=== PATIENT | male | born 1940 | race Caucasian/White ===

== ENCOUNTER 2020-03-06 16:05 | Emergency (ER) | payer MEDICARE, BC ==
[~2020-03-06 16:05] MED LIST: Iopamidol-370 76% 500 ML 1 ML ONE
[2020-03-06 17:28] LABS: Bilirubin Negative (Negative); Blood, Urine Negative (Negative); Clarity Clear (Clear); Glucose, Urine (Dipstick) 30 mg/dL (Negative); Ketone, Urine Negative (Negative); Leukocyte Negative Leu/uL (Negative); Nitrite Negative (Negative); Protein, Urine (Dipstick) Negative (Neg-Trace); Specific Gravity, Urine 1.011 (1.002-1.036); Urobilinogen Normal mg/dL (Less than 2)
[2020-03-06 18:16] LABS: Hemoglobin 16.5 g/dL (14.0-18.0); Mean Corpuscular HGB CONC 33.5 g/dL (32.0-36.0); Mean Corpuscular Hemoglobin 31.5 pg (27.0-31.0); Mean Corpuscular Volume 94.1 fL (78.0-98.0); Mean Platelet Volume 7.3 fL (7.4-10.4); Platelet Count 258 thou/uL (130-400); RBC Distribution Width 11.9 % (11.5-14.5); Red Blood Cell (RBC) Count 5.24 mill/uL (4.70-6.10)
[2020-03-06 18:31] LABS: ALT (SGPT) 17 U/L (8-55); AST (SGOT) 24 U/L (5-34); Albumin 4.4 g/dL (3.4-4.8); Alkaline Phosphatase 84 U/L (40-110); Anion Gap 14 mmol/L (10-20); BUN (Urea Nitrogen) 16 mg/dL (8.4-25.7); Bilirubin, Total 0.7 mg/dL (0.2-1.2); Calc. Creatinine Clearance 0 mL/min (70-130); Calcium 10.7 mg/dL (7.8-10.44); Carbon Dioxide 25 mmol/L (23-31); Chloride 105 mmol/L (98-107); Globulin 3.7 g/dL (2.4-3.5); Glucose 118 mg/dL (83-110); Potassium 3.9 mmol/L (3.5-5.1); Protein, Total 8.1 g/dL (5.8-8.1); Sodium 140 mmol/L (136-145)
[2020-03-06 18:37] LABS: Band 4 % (5-11); Lymphocytes 12 % (21-51); MDiff Complete? YES; Monocytes 19 % (0-10); Neutrophil 65 % (42-75); Platelet Morphology Comment Appears Adequate; RBC Morphology Normal
--- NOTE | 2020-03-06 19:30 | CT ---
CT Abdomen Pelvis W Con: 03/06/2020 7:09 PM CLINICAL INFORMATION: Urinary incontinence, bloating and abdominal pain COMPARISON: CT chest 09/11/2015 TECHNIQUE: Multiple contiguous axial images were obtained and a CT of the abdomen and pelvis with IV contrast. C oronal and sagittal reformats were performed. FINDINGS: Lower Chest: Bilateral posterior scarring is stable. There is a stable calcification along the anteri or pleura in the right thorax. Abdomen: Liver: within normal limits. Bile Ducts: Normal caliber. Gallbladder: No calcified gallstones. Normal caliber wall. Pancreas: within normal limits. Spleen: within normal limits. Adrenals: within normal limits. Kidneys: Mild bilateral hydronephrosis. Pelvis: Reproductive Organs: Prostate is enlarged and has calcifications within it. Ureters: Mild bilateral hydroureter. Bladder: Distended without focal abnormality. Peritoneum: No ascites or free air, no fluid collection. Bowel: Normal caliber. Surgical clips are seen near the gastroesophageal junction. Mesentery and Retroperitoneum: No enlarged mesenteric or retroperitoneal lymph nodes. Vessels: Atherosclerotic calcifications. Abdominal Wall: There is a moderate left hydrocele. Bones: Degenerative and postsurgical changes are seen in the spine. IMPRESSION: 1. Distention of the urinary bladder with vesicoureteral reflux causing bilateral mild hydronephrosis . 2. Moderate left hydrocele
== END 2020-03-06 21:18 | disposition home or self-care (01) ==
LOC: ERS 16:05
DX: N40.1 Benign prostatic hyperplasia with lower urinary tract symptoms (principal); R33.8 Other retention of urine; I10 Essential (primary) hypertension; Z79.899 Other long term (current) drug therapy
CPT/HCPCS: 36415; 51702; 74177; 80053; 81003; 83690; 85025; Q9967

== ENCOUNTER 2020-05-08 05:51 | Day surgery (SDC) | payer MEDICARE, BC ==
[2020-05-04 14:57] VITALS: BMI 23.4
[2020-05-08] MEDS ORDERED: Bacitracin Zinc Ointment 30 gm TUBE ONE (06:31)
[2020-05-08] MEDS ORDERED: Bupivacaine 0.25% HCL 30 ML VIAL ONE (06:31)
[2020-05-08] MEDS ORDERED: Fentanyl 100 MCG/2 ML VIAL ONE (06:58)
--- NOTE | 2020-05-08 09:39 | OP ---
DATE OF PROCEDURE: 05/08/2020 PREOPERATIVE DIAGNOSIS: Left hydrocele. POSTOPERATIVE DIAGNOSIS: Left spermatocele. PROCEDURE PERFORMED: Left spermatocelectomy. ANESTHESIA: General with local. ESTIMATED BLOOD LOSS: Minimal. FINDINGS: Preoperatively on exam and on ultrasound, it looked to have a large left hydrocele, it actually turned out to be a large left spermatocele. DRAINS PLACED: None. SPECIMEN SENT: Spermatocele sac intact. DESCRIPTION OF PROCEDURE: After obtaining written and verbal consent from the patient after documenting normal preoperative blood work, he was taken to the operating suite. He was placed in a supine position on the treatment table. PlexiPulses were placed on lower extremities. He was given a general anesthetic and oral intubation. His scrotum was shaved and then he was sterilely prepped and draped. The lower aspect of the median raphae was infiltrated with 0.25% Marcaine without epinephrine, and an incision was made along this and then taken down with the Bovie into the left hemiscrotum until we got to the layer of the tunica vaginalis. This was opened and really just a very small amount of fluid and then another fluid collecting chamber inside of it, which was a spermatocele. We opened up the tunica vaginalis enough to deliver the testicle with the spermatocele attached. We opened up the visceral peritoneum over the spermatocele sac and then dissected this back to the tail of the left epididymis, where we were able to over-sew its connection and the specimen was sent off. This area was thoroughly washed with sterile saline. Hemostasis was obtained with electrocautery unit. The tunica vaginalis was closed with interrupted 3-0 chromic. The scrotum was irrigated out. Hemostasis was obtained. The testicle was returned to its normal position. The scrotum was closed in two layers, dartos muscle with 2-0 chromic and skin with 3-0 chromic U-stitches. Drain was not placed. We did inject another 10 mL of 0.25% Marcaine without epinephrine before closing the scrotum. This was just left in the scrotal wall. Fluffs and webbed underwear were placed as a dressing. He was then awakened, extubated, and taken by stretcher to recovery room. Job ID: [id number]
[2020-05-08] MEDS ORDERED: PHENYLEPHRINE-NS 100 MCG/ML 10 ML SYRINGE ONE (09:53)
[2020-05-08] MEDS ORDERED: Lidocaine 1% PF 5 ML VIAL ONE (09:53)
[2020-05-08] MEDS ORDERED: ePHEDrine 50 MG/ML VIAL ONE (09:53)
[2020-05-08] MEDS ORDERED: Ondansetron PF 4 MG/2 ML Vial ONE (09:53)
[2020-05-08] MEDS ORDERED: Dexamethasone 20 MG/5 ML VIAL ONE (09:53)
[2020-05-08] MEDS ORDERED: PROPOFOL 200 MG/20 ML VIAL ONE (09:53)
[2020-05-08] MEDS ORDERED: HYDROcodone/Acetaminophen 5/325 mg Tablet ONE ×2 (10:28→10:57)
== END 2020-05-08 11:20 | disposition home or self-care (01) ==
LOC: SDC 05:51
PROVIDERS: ATTEND Urology
PROC: 0VB Male Reproductive System, Excision (ICD-10-PCS; principal; 2020-05-08)
DX: N43.41 Spermatocele of epididymis, single (principal); I10 Essential (primary) hypertension; K21.9 Gastro-esophageal reflux disease without esophagitis; Z79.899 Other long term (current) drug therapy
CPT/HCPCS: 88112; 88304; J0690; J1100; J2405; J2704; J3010; J3490; S0020

== ENCOUNTER 2022-08-28 12:33 | Outpatient (CLI) | payer MEDICARE, BC ==
[2022-08-28 13:43] LABS: Hemoglobin 14.7 g/dL (13.5-17.5); Mean Corpuscular HGB CONC 33.4 g/dL (32.0-36.0); Mean Corpuscular Hemoglobin 30.9 pg (27.0-33.0); Mean Corpuscular Volume 92.4 fl (81.2-95.1); Mean Platelet Volume 10.2 fl (7.4-10.4); Platelet Count 224 10x3/uL (150-450); RBC Distribution Width 12.8 % (11.5-14.5); Red Blood Cell (RBC) Count 4.76 10x6/uL (4.32-5.72); White Blood Cell (WBC) Count 7.2 10x3/uL (3.5-10.5)
[2022-08-28 13:50] LABS: Anion Gap 10 mmol/L (10-20); BUN (Urea Nitrogen) 20 mg/dL (8.4-25.7); Calc. Creatinine Clearance 0 mL/min (70-130); Calcium 10.3 mg/dL (7.8-10.44); Carbon Dioxide 25 mmol/L (23-31); Chloride 105 mmol/L (98-107); Estimated GFR 67; Glucose 97 mg/dL (83-110); PTT 27.3 sec (22.0-33.0); Potassium 4.1 mmol/L (3.5-5.1); Prothrombin Time 10.8 sec (9.5-12.1); Sodium 136 mmol/L (136-145)
== END 2022-08-28 12:34 | disposition home or self-care (01) ==
LOC: LABBT 12:33
PROVIDERS: ATTEND Urology
DX: Z01.812 Encounter for preprocedural laboratory examination (principal); N32.0 Bladder-neck obstruction
CPT/HCPCS: 80048; 85027; 85610; 85730; 87086

== ENCOUNTER 2024-11-02 09:18 | Emergency (ER) | payer MEDICARE, BC ==
[2024-11-02] MEDS ORDERED: HYDROcodone/Acetaminophen 5/325 mg Tablet ONE (10:13)
== END 2024-11-02 10:51 | disposition home or self-care (01) ==
LOC: ERS 09:18
DX: S42.402A Unspecified fracture of lower end of left humerus, initial encounter for closed fracture (principal); M77.8 Other enthesopathies, not elsewhere classified; I10 Essential (primary) hypertension; W22.8XXA Striking against or struck by other objects, initial encounter; Z79.899 Other long term (current) drug therapy
CPT/HCPCS: 29105